=== PATIENT | male | born 1960 | race Caucasian/White ===

== ENCOUNTER 2020-06-18 09:25 | Inpatient (IN) ==
[2020-06-12 16:37] LABS: Appearance,Urine CLEAR (Clear); Bilirubin,Urine Negative (Negative); Color,Urine STRAW; Culture Indicated,Urine No; Glucose,Urine (UA) Negative (Negative); Ketones,Urine Negative (Negative); Leukocyte Esterase,Urine Negative /ug (Negative); Nitrate,Urine Negative (Negative); Protein,Urine Negative (Negative); Specific Gravity,Urine 1.009 (1.000-1.035); Urine Blood Negative (Negative); Urobilinogen,Urine Negative
[2020-06-12 16:45] LABS: Basophils # (Auto) 0.04 K/mcL (0.00-0.20); Basophils % (Auto) 0.8 % (0.0-2.0); Eosinophils # (Auto) 0.07 K/mcL (0.00-0.70); Eosinophils % (Auto) 1.3 % (0.0-7.0); Hematocrit 46.7 % (41.0-55.0); Hemoglobin 15.3 g/dL (13.5-16.5); Lymphocytes # (Auto) 1.37 K/mcL (1.50-4.80); Lymphocytes % (Auto) 26.2 % (15.0-49.0); Mean Cell Volume 89.6 fL (80.0-100.0); Mean Corpuscular HGB Conc 32.8 g/dL (31.0-36.0); Mean Platelet Volume 9.7 fL (7.4-10.4); Monocytes # (Auto) 0.38 K/mcL (0.10-0.90); Monocytes % (Auto) 7.3 % (1.0-12.0); Neutrophils % (Auto) 64.4 % (38.0-78.0); Platelet Count 288 K/mcL (140-440); RBC 5.21 M/mcL (4.50-5.90); Red Cell Distribution Width 13.4 % (11.5-14.5); WBC 5.2 K/mcL (4.5-11.0)
[2020-06-12 17:12] LABS: Blood Urea Nitrogen 11 mg/dL (8-23); Calcium 9.4 mg/dL (8.6-10.4); Carbon Dioxide 26 mmol/L (22-30); Chloride 103 mmol/L (96-108); Glomerular Filtration Rate 91; Glucose 130 mg/dL (70-105)
[~2020-06-18 09:25] MED LIST: ACETAMINOPHEN 500 MG TABLET PO SCH; CELECOXIB 200 MG CAPSULE PO SCH; IPRATROPIUM/ALBUTEROL 3 ML AMPUL.NEB NEB PRN; PREGABALIN 75 MG CAPSULE PO SCH; SCOPOLAMINE 1 PATCH PATCH TOPICAL PRN; ceFAZolin 2 GM in DEXTROSE 5% IN WATER 50 ML IV SCH; oxyCODONE 10 MG TAB.ER.12H PO SCH
[2020-06-18] MEDS ORDERED: ROPIVACAINE HCL/PF 30 ML VIAL IJ ONE (13:09)
[2020-06-18] MEDS ORDERED: MIDAZOLAM 2 MG/2 ML VIAL ONE (13:09)
[2020-06-18] MEDS ORDERED: DEXAMETHASONE 10 MG/ML VIAL ONE (13:09)
[2020-06-18] MEDS ORDERED: TRANEXAMIC ACID 1,000 MG/10 ML VIAL IV ONE (13:09)
[2020-06-18] MEDS ORDERED: KETAMINE 100 MG/ML ML ONE (13:09)
[2020-06-18] MEDS ORDERED: PROPOFOL 200 MG/20 ML VIAL IV ONE (13:09)
[2020-06-18] MEDS ORDERED: ONDANSETRON 4 MG/2 ML VIAL ONE (13:09)
[2020-06-18] MEDS ORDERED: ESMOLOL 100 MG/10 ML VIAL IV ONE (13:09)
[2020-06-18] MEDS ORDERED: LIDOCAINE HCL/PF 100 MG/5 ML SYRINGE IV ONE (13:09)
[2020-06-18] MEDS ORDERED: GLYCOPYRROLATE 0.2 MG/ML VIAL IV ONE (13:09)
[2020-06-18] MEDS ORDERED: fentaNYL 100 MCG/2 ML VIAL IV ONE (13:09)
[2020-06-18] MEDS ORDERED: GENTAMICIN SULFATE 800 MG/20 ML VIAL IR ONE (13:33)
[2020-06-18] MEDS ORDERED: HYDROmorphone 0.5 MG/0.5 ML SYRINGE IV PRN (14:17)
[2020-06-18] MEDS ORDERED: MEPERIDINE 25 MG/ML SYRINGE IV PRN (14:17)
[2020-06-18] MEDS ORDERED: ONDANSETRON 4 MG/2 ML VIAL IV PRN ×2 (14:17→14:22)
[2020-06-18] MEDS ORDERED: BENZOCAINE/MENTHOL 1 LOZENGE PO PRN ×2 (14:17→14:22)
[2020-06-18] MEDS ORDERED: METHOCARBAMOL 1,000 MG/10 ML VIAL IV PRN (14:17)
[2020-06-18] MEDS ORDERED: IPRATROPIUM/ALBUTEROL 3 ML AMPUL.NEB NEB PRN (14:17)
[2020-06-18] MEDS ORDERED: ACETAMINOPHEN 325 MG TABLET PO PRN (14:22)
[2020-06-18] MEDS ORDERED: BISACODYL 10 MG SUPP.RECT PR PRN (14:22)
[2020-06-18] MEDS ORDERED: MAGNESIUM HYDROXIDE 30 ML ORAL.SUSP PO PRN (14:22)
[2020-06-18] MEDS ORDERED: POLYETHYLENE GLYCOL 3350 17 GM PACKET PO PRN (14:22)
[2020-06-18] MEDS ORDERED: FLEETS ADULT ENEMA PR PRN (14:22)
[2020-06-18] MEDS ORDERED: TRANEXAMIC ACID 1,000 MG/10 ML VIAL IV SCH (14:22)
--- NOTE | 2020-06-18 14:22 | Brief Operative Note ---
Brief Operative Note Date of procedure: 06/18/20 Pre-op diagnosis: left shoulder RCA, DJD Post-op diagnosis: same Procedure: left reverse total shoulder, bicep tendonesis Grafts/Implants: Yes Anesthesia: GETA Complications: none Surgeon: Aneudy Chavis Host Hostess: Roque Hill Estimated blood loss (cc): 50 Specimens Removed/Pathology: none sent Condition: stable Disposition: PACU
[2020-06-18] MEDS ORDERED: HYDROcodone/APAP 10/325MG TABLET PO PRN (14:27)
[2020-06-18] MEDS ORDERED: LACTATED RINGERS 1,000 ML IV SCH (14:30)
--- NOTE | 2020-06-18 14:37 | Discharge Plan ---
Discharge Instructions - [facility] Patient Instructions Total Shoulder Protocol: Leave immobilizer in place except for bathing and ROM. Abduction pillow. Continue to wear sling until seen by physician. [place] Pendulum : These exercises use momentum produced by your body to move your shoulder joint. Bend your knees and shift your weight to your front leg, then back, allowing your arm to swing in the same directions. Using the same technique, alternately shift your weight between your right and left legs, allowing your arm to swing from side to side. These exercises are also performed in counterclockwise and clockwise circular motions. Typically these exercises are performed several times per day, for a set number repetitions or minutes, such as 20 times in a row or 5 minutes at a time. Discharge Plan Patient/Caregiver Discharge Instructions Activity: as per physical therapy Diet: Regular Diet Prescriptions: New hydrocodone-acetaminophen 10-325 mg Tablet 1 - 2 tab PO Q4HP PRN (Reason: Pain Level 3-6) Qty: 75 RF: 0 docusate sodium 100 mg Capsule 100 mg PO BID Qty: 60 RF: 0 No Action celecoxib 200 mg Capsule 200 mg PO QDAY RF: 0 venlafaxine 150 mg Capsule,Extended Release 24hr 150 mg PO QDAY RF: 0 hydrocodone-acetaminophen 10-325 mg Tablet 1 tab PO Q4H PRN (Reason: Pain) RF: 0 omeprazole 20 mg Capsule,Delayed Release(Dr/Ec) 20 mg PO BID RF: 0 lisinopril 20 mg Tablet 1 PO DAILY RF: 0 Other Ambulatory Orders: Brace/Splint (ONCE) Location: None Selected Ordered By: Roque Hill Physical Therapy [facility] (Routine) Location: None Selected Ordered By: Roque Hill Follow Up Plan Follow up with: Roque Hill PA-C [Physician Blood Splatter Analyst] - 07/05/20 11:20 am Patient Disposition: Home, Self-Care Prognosis: Good Rehab Potential: Good I certify that the patient requires SNF services: No Overall status at discharge: patient is progressing back to baseline Discharge Orders: Discharge Order (Routine); Ordered 06/19/20 Ordered By: Roque Hill
[2020-06-18] MEDS: fentaNYL 100 MCG/2 ML VIAL IV PRN ×4 (14:56→15:13)
--- NOTE | 2020-06-18 15:18 | XRay Report ---
HISTORY: Postop left shoulder arthroplasty FINDINGS: There is a well-positioned reverse shoulder prosthesis. No fracture or abnormal soft tissue calcification are present. IMPRESSION: Well-positioned left shoulder prosthesis Interpreted and Authenticated by: Nicolas Mason 06/18/20
[2020-06-18] MEDS ORDERED: LORazepam 2 MG/ML VIAL IV ONE (15:25)
[2020-06-18] MEDS: LACTATED RINGERS 1,000 ML IV SCH (15:59)
[2020-06-18] MEDS: HYDROmorphone 1 MG/ML SYRINGE IV PRN ×3 (16:02→23:30)
[2020-06-18] MEDS: OMEPRAZOLE 20 MG CAPSULE PO SCH (18:15)
[2020-06-18] MEDS: HYDROcodone/APAP 10/325MG TABLET PO PRN ×2 (18:16→23:17)
[2020-06-18] MEDS ORDERED: TEMAZEPAM 15 MG CAPSULE PO PRN (21:00)
[2020-06-18] MEDS ORDERED: SENNOSIDES 1 TABLET PO SCH (21:00)
[2020-06-18] MEDS: DOCUSATE SODIUM 100 MG CAPSULE PO SCH (21:31)
[2020-06-18] MEDS: ceFAZolin 1 GM VIAL IV SCH (21:32)
[2020-06-18] MEDS: 0.9 % SODIUM CHLORIDE 10 ML SYRINGE IV SCH (22:12)
[2020-06-19] MEDS: LACTATED RINGERS 1,000 ML IV SCH ×2 (00:41→11:20)
[2020-06-19] MEDS: HYDROmorphone 1 MG/ML SYRINGE IV PRN (02:07)
[2020-06-19] MEDS: HYDROcodone/APAP 10/325MG TABLET PO PRN ×3 (03:36→11:30)
[2020-06-19] MEDS: 0.9 % SODIUM CHLORIDE 10 ML SYRINGE IV SCH (04:53)
[2020-06-19] MEDS: ceFAZolin 1 GM VIAL IV SCH (04:53)
--- NOTE | 2020-06-19 06:58 | Operative Note ---
DATE OF OPERATION: 06/18/2020 PREOPERATIVE DIAGNOSES: Left shoulder rotator cuff arthropathy and DJD as well as biceps tendinopathy. POSTOPERATIVE DIAGNOSES: Left shoulder rotator cuff arthropathy and DJD as well as biceps tendinopathy. PROCEDURE: Left reverse total shoulder and biceps tenodesis using [place] components. SURGEON: Aneudy Chavis M.D. ADJUNCT ART HISTORY INSTRUCTOR: Roque Hill PA-C. This providers expertise and technical skill were required throughout the case. The CH[facility]IS assisted with preoperative coordination, intraoperative retraction, wound closure, and dressing and splint application, as well as postoperative documentation and care coordination. ANESTHESIA: General LMA anesthesia. COMPLICATIONS: None. ESTIMATED BLOOD LOSS: Approximately 50 mL DESCRIPTION OF PROCEDURE: The patient was brought to the operating room, put to sleep with general LMA anesthesia. Once asleep, the patient had the left shoulder was sterilely prepped and draped in the usual sterile fashion. A timeout was performed confirming the operative site by initials, consent form and x-rays. A deltopectoral approach was performed. We exposed the joint, released the subscap and made our neck cut at 130 degrees using the [place] guide. The ball was subluxed posteriorly, or the humeral shaft. We then performed a 360-degree capsular release and released the biceps tendon. We then placed the pin centrally at 10 degrees of inclination. We reamed up to the size of 36 and implanted a metaglene and a glenosphere. The metaglene was held in place by a 40 mm central screw. Two peripheral screws measured 36 and 32 mm, glenosphere with 2 mm of offset, 2 mm of eccentricity was performed. We then broached up on the humeral side. Once this was reamed up to size 11 we then broached up to a stem size 11. We trialed the standard thickness poly. This seemed to be the most appropriate. We then implanted [place] stem with a small amount of cement distally and a 4 mm standard poly insert. This was placed and reduced. Shoulder was stable throughout the full arc of motion. We irrigated thoroughly and then closed the deltopectoral interval with 2-0 Vicryl, closed the skin with 3-0 __, Stratafix and adhesive closure. Sterile bandage applied. He was also fitted and given a [place] sling. NEW:nahed Job ID: [id number] Doc ID: [id number] Aneudy Chavis MD
--- NOTE | 2020-06-19 07:29 | Orthopedic Progress Note ---
SUBJECTIVE Subjective Patient information: Note initiated : 06/19/20 at 7:28 am Service Date, if different from initiated Date: [] Patient: Erlin Worrell 59 y/o M admitted on 06/18/20 for Left Total Shoulder Arthroplasty Reverse with Open. Chief Complaint: [Pt is stable this morning on post operative day without any significant concerns or complaints. Patients vital signs have remained stable. Patients dressing is dry and is grossly intact from a neurovascular and motor standpoint. Patients 10 point ROS is otherwise negative. ] Constitutional Vitals: Vital Signs Temp Pulse Resp BP Pulse Ox 98.7 F 97 H 20 109/71 91 06/19/20 06:52 06/19/20 06:52 06/19/20 06:52 06/19/20 06:52 06/19/20 06:52 Period Temp Pulse Resp BP Sys/Cho Pulse Ox Last 24 Hr 96.9 F-98.7 F 80-110 16-22 94-157/63-112 84-100 Intake and Output 06/18/20 06/19/20 06/19/20 21:59 05:59 13:59 Intake Total 1740 1040 400 Output Total 685 800 Balance 1055 240 400 Weight 209 lb 3.2 oz Intake & Output: Intake & Output 06/18/20 06/19/20 06/19/20 21:59 05:59 13:59 Intake Total 1740 1040 400 Output Total 685 800 Balance 1055 240 400 Weight 209 lb 3.2 oz Intake: IV 40 Lactated Ringers 1,000 ml @ 20 40 mls/hr IV .Q24H [facility] Rx#: [id number] Oral 1040 400 IV - Manual Only 1700 Output: Void Amount 600 800 Estimated Blood Loss 85 Other: Feeding Ability Independent Urine Appearance Clear Clear Clear Urine Color Bright Yellow Bright Yellow Bright Yellow Urine Odor Normal Normal # Voids 1 1 Extremities Exam Extremities exam: Present normal capillary refill, normal inspection and neurovascular intact OBJ DATA Labs CBC & Chem 7: 06/12/20 13:50 06/12/20 13:50 Meds: Medications Acetaminophen (Tylenol) 650 mg PO Q6HP PRN PRN Reason: PAIN/FEVER > 101 Hydrocodone Bitart/Acetaminophen ([place] 10/325mg) 0 tab PO Q4HP PRN PRN Reason: PAIN LEVEL 3-6 Last Admin: 06/19/20 03:36 Dose: 2 tab Documented by: Aspirin (Aspirin) 81 mg PO DAILY [facility] Bisacodyl (Dulcolax) 10 mg FL Q2-3DAYS PRN PRN Reason: Constipation Celecoxib (Celebrex) 200 mg PO QDAY [facility] Docusate Sodium (Colace) 100 mg PO BID [facility] Last Admin: 06/18/20 21:31 Dose: 100 mg Documented by: Hydromorphone HCl (Dilaudid) 0 mg IV Q2HP PRN; Protocol PRN Reason: Per Pain Protocol Last Admin: 06/19/20 02:07 Dose: 1 mg Documented by: Lactated Ringer's (Lactated Ringers) 1,000 mls @ 100 mls/hr IV .Q10H [facility] Last Admin: 06/19/20 00:41 Dose: Not Given Documented by: Magnesium Hydroxide (Milk Of Magnesia) 30 ml PO BIDP PRN PRN Reason: Constipation Omeprazole (Prilosec) 20 mg PO BIDAC [facility] Last Admin: 06/18/20 18:15 Dose: 20 mg Documented by: Ondansetron HCl (Zofran) 4 mg IV Q4HP PRN PRN Reason: Nausea And Vomiting Polyethylene Glycol (Miralax) 17 gm PO DAILYP PRN PRN Reason: Constipation Senna (Senokot) 2 tab PO HS [facility] Last Admin: 06/18/20 21:31 Dose: 2 tab Documented by: Sodium Biphosphate/Sodium Phosphate (Fleets Adult) 1 dose FL Q3-4DAYS PRN PRN Reason: Constipation Sodium Chloride (Saline Flush) 10 ml IV Q8 [facility] Last Admin: 06/19/20 04:53 Dose: 10 ml Documented by: Temazepam (Restoril) 15 mg PO HSP PRN PRN Reason: Insomnia Throat Lozenges (Cepacol) 1 lozenge PO PRN PRN PRN Reason: Sore Throat Venlafaxine HCl (Effexor Xr) 150 mg PO QDAY [facility] A/P Narrative A/P Narrative: The patient has been educated regarding dressing care, Physical Therapy recommendations, home exercises, restrictions, and follow up appointments. The patient has had all necessary DME prescribed. The patient has remained relatively stable during their hospital course. Time Spent With Patient Time: Total time spent is greater than 50% in coordination of care (as documented) at patient's floor/unit and/or counseling patient: Total time spent with greater than 50% in coordination of care (as documented) at patient's floor/unit and/or counseling patient:: less than 15 minutes
[2020-06-19] MEDS ORDERED: VENLAFAXINE 150 MG CAP.XL.24H PO SCH (09:00)
[2020-06-19] MEDS ORDERED: CELECOXIB 200 MG CAPSULE PO SCH (09:00)
[2020-06-19] MEDS ORDERED: ASPIRIN 81 MG TAB.CHEW PO SCH (09:00)
[2020-06-19] MEDS: OMEPRAZOLE 20 MG CAPSULE PO SCH (11:19)
[2020-06-19] MEDS: DOCUSATE SODIUM 100 MG CAPSULE PO SCH (11:20)
== END 2020-06-19 12:24 | disposition home or self-care (01) | DRG 483 ==
LOC: MEDSUR 09:25
PROVIDERS: ADMIT Orthopaedic Surgery; ATTEND Orthopaedic Surgery